=== PATIENT | female | born 1955 | race Hispanic/Latino ===

== ENCOUNTER → 2019-02-15 | Outpatient (CLI) | payer OTHER ==
[~2019-02-15] MED LIST: IOPAMIDOL 370 MG/ML 200 ML INFUS..BTL INJ ONE; SODIUM CHLORIDE 0.9% 50ML 50 ML ONE
[2019-02-15 18:31] LABS: BLOOD UREA NITROGEN 19 mg/dL (7-26); BUN/CREATININE RATIO 23 (6-25); CREATININE, SERUM 0.82 mg/dL (0.57-1.11); EST GLOMERULAR FILTRATION RATE > 60 ML/MIN (60-)
--- NOTE | 2019-02-15 19:22 | Diagnostic Imaging Report ---
CT CHEST WITH CONTRAST HISTORY: SOB; CP COMPARISON: None available. TECHNIQUE: CT scan of the chest WITH intravenous contrast, using PE protocol. The chest was scanned utilizing a multidetector helical scanner from the lung apex through the level of the adrenal glands. Thin section reconstructions were obtained with special concentration on the pulmonary arteries. IV CONTRAST: 100 cc of Isovue-370. PROTOCOL: PE RADIATION DOSE: Total DLP: 500.61 mGy*cm Dose modulation, iterative reconstruction, and/or weight based adjustment of the mA/kV was utilized to reduce the radiation dose to as low as reasonably achievable. COMPLICATIONS: None DISCUSSION: Lungs: Low lung volumes result in bibasilar vascular crowding, accentuation of the pulmonary interstitial markings, central pulmonary vasculature, and the cardiac silhouette. Allowing for these limitations, the findings are as follows: Indeterminate 5 mm nodule within the right middle lobe (axial image 62). No consolidation. A 7 mm thin-walled cyst within the superior aspect of the left lower lobe. Vessels: No filling defects are identified within the pulmonary arteries to the segmental levels. Airways: Mild diffuse thickening of the bronchial barriga. Pleura: No pleural effusion or pneumothorax. Heart and mediastinum: Unremarkable Abdomen: Limited evaluation of the upper abdomen. Lymph nodes: No pathologically enlarged lymph node. Bones: No acute bone abnormality. Soft tissues: Unremarkable IMPRESSION: 1. No pulmonary embolus. 2. An incidental indeterminate 5 mm right middle lobe nodule. If the patient is at increased risk of lung cancer such as a significant smoking history or known malignancy, recommend a follow-up surveillance CT of the chest without contrast in one year to assess for stability. Signed by: Dr. Yuan Grossman D.O., M.M.M. on 02/15/2019 7:19 PM
== END ==
LOC: CT 17:14
PROVIDERS: ATTEND Internal Medicine Cardiovascular Disease
DX: R06.02 Shortness of breath (principal); R07.9 Chest pain, unspecified; R91.1 Solitary pulmonary nodule
CPT/HCPCS: 36415; 71260; 82565; 84520; Q9967

== ENCOUNTER → 2019-08-12 | Outpatient (CLI) | payer OTHER ==
--- NOTE | 2019-08-12 17:14 | Diagnostic Imaging Report ---
CT of the chest, without contrast, 08/12/2019. History: Lung nodules. Comparison: 02/15/2019. Technique: Multidetector CT scanning of the chest was performed from the level of the thoracic inlet to the upper abdomen without IV or oral contrast. Dose reduction: The examination was performed according to departmental dose-optimization program which includes automated exposure control, adjustment of the mA and/or kV according to patient size and/or use of iterative reconstruction technique. Findings: The visualized portions of the thyroid gland are within normal limits. There is no axillary, mediastinal, or hilar lymphadenopathy. The heart is within normal limits of size. There is no pericardial effusion. The thoracic aorta is of normal course and caliber. The trachea and central airways are clear. A 5 mm pulmonary nodule is identified in the right upper lobe on series 3 image 69. This is unchanged from prior examination dated 02/15/2019. No new pulmonary nodules are identified. There is no consolidation, pleural effusion, or pneumothorax. There are no acute osseous abnormalities. Limited evaluation of the upper abdomen demonstrates no focal hepatic lesions in the visualized portions of the liver. The spleen is within normal limits. The bilateral adrenal glands are unremarkable. IMPRESSION: Unchanged 5 mm right middle lobe pulmonary nodule. No new pulmonary nodules. Signed by: Landon Ross MD on 08/12/2019 5:11 PM
== END ==
LOC: CT 13:39
PROVIDERS: ATTEND Internal Medicine Pulmonary Disease
DX: R91.1 Solitary pulmonary nodule (principal)
CPT/HCPCS: 71250

== ENCOUNTER → 2021-02-23 | Outpatient (CLI) | payer BC | LOC: SLEEP 18:52 | PROVIDERS: ATTEND Internal Medicine Critical Care Medicine | DX: G47.33 Obstructive sleep apnea (adult) (pediatric) (principal); Z20.822 Contact with and (suspected) exposure to COVID-19 | CPT/HCPCS: 95806; U0002 ==

== ENCOUNTER → 2022-08-03 | Outpatient (CLI) | payer MEDICARE | LOC: CT 15:51 | PROVIDERS: ATTEND Internal Medicine Pulmonary Disease | DX: R91.1 Solitary pulmonary nodule (principal) | CPT/HCPCS: 71250 ==

== ENCOUNTER → 2022-12-16 | Outpatient (CLI) | payer MEDICARE | LOC: MRI 12:46 | PROVIDERS: ATTEND Nurse Practitioner | DX: R20.0 Anesthesia of skin (principal); R53.1 Weakness | CPT/HCPCS: 70551 ==

== ENCOUNTER 2022-12-24 10:11 | Emergency (ER) | payer MEDICARE ==
[~2022-12-24] VITALS: Ht 154.9 cm; Wt 67.1 kg
[2022-12-24 10:51] LABS: BASOPHILS # (AUTO) 0.1 (0.0-0.1); BASOPHILS % 0.5 % (0.0-1.0); EOSINOPHILS # (AUTO) 0.2 (0.0-0.4); EOSINOPHILS % 1.6 % (0.0-6.0); HEMATOCRIT 40.3 % (34.2-44.1); HEMOGLOBIN 13.2 g/dL (12.0-16.0); LYMPHOCYTES # (AUTO) 1.6 (1.0-3.2); LYMPHOCYTES % 14.9 % (18.0-39.1); MEAN CORPUSCULAR HEMOGLOBIN 29.3 pg (28-32); MEAN CORPUSCULAR HGB CONC 32.8 g/dL (31-35); MEAN CORPUSCULAR VOLUME 89.6 fL (81-99); MONOCYTES # (AUTO) 0.7 (0.2-0.8); MONOCYTES % 6.3 % (4.4-11.3); NEUTROPHILS # (AUTO) 8.4 (2.1-6.9); NEUTROPHILS % 76.4 % (38.7-80.0); PLATELET COUNT 236 x10e3/uL (140-360); RED CELL DISTRIBUTION WIDTH 13.3 % (11.7-14.4)
[2022-12-24 11:05] LABS: ALANINE AMINOTRANSFERASE 17 IU/L (0-55); ALBUMIN 4.1 g/dL (3.5-5.0); ALKALINE PHOSPHATASE 69 IU/L (40-150); ANION GAP 15.8 mmol/L (8-16); BLOOD UREA NITROGEN 17 mg/dL (7-26); BUN/CREATININE RATIO 23 (6-25); CALCIUM 9.6 mg/dL (8.4-10.2); CARBON DIOXIDE 24 mmol/L (22-29); CHLORIDE 104 mmol/L (98-107); CREATININE, SERUM 0.75 mg/dL (0.57-1.11); GLUCOSE 105 mg/dL (74-118); POTASSIUM 3.8 mmol/L (3.5-5.1); SODIUM 140 mmol/L (136-145)
[2022-12-24 11:08] LABS: CLARITY,URINE SL CLOUDY (CLEAR); COLOR,URINE YELLOW (YELLOW); KETONES,URINE NEGATIVE (NEGATIVE); LEUKOCYTE ESTERASE ,URINE TRACE (NEGATIVE); NITRITE,URINE NEGATIVE (NEGATIVE); PROTEIN,URINE DIPSTICK NEGATIVE (NEGATIVE); URINE UROBILINOGEN 0.2 mg/dL (0.2 - 1)
[2022-12-24 11:09] LABS: BACTERIA,URINE MODERATE /HPF; EPITHELIAL CELLS,URINE FEW /LPF; RBC,URINE 0-5 /HPF (0-5)
[2022-12-24] MEDS ORDERED: SODIUM CHLORIDE 0.9% 500ML 500 ML IV ONE (11:15)
[2022-12-24 11:27] LABS: CREATINE KINASE 93 IU/L (29-168)
[2022-12-24] MEDS ORDERED: TRAMADOL HCL 50 MG TAB PO ONE (11:30)
[2022-12-24] MEDS ORDERED: CEFUROXIME250 MG PO (12:31)
[2022-12-24 12:56] VITALS: BP 106/69
== END 2022-12-24 13:01 | disposition home or self-care (01) ==
LOC: ER 10:14
DX: R52 Pain, unspecified (principal); N39.0 Urinary tract infection, site not specified; I10 Essential (primary) hypertension; E11.9 Type 2 diabetes mellitus without complications; E78.5 Hyperlipidemia, unspecified; Z20.822 Contact with and (suspected) exposure to COVID-19
CPT/HCPCS: 36415; 71045; 80053; 81001; 82550; 82553; 83735; 84484; 85025; 87086; 93005; 99284; J7040; U0002

== ENCOUNTER → 2024-04-23 | Outpatient (REF) | payer MEDICARE ==
[~2024-04-23] MED LIST changes: +CEFUROXIME250 MG PO; -IOPAMIDOL 370 MG/ML 200 ML INFUS..BTL INJ ONE; +REGADENOSON 0.4 MG/5 ML SYR IV ONE; -SODIUM CHLORIDE 0.9% 50ML 50 ML ONE
== END ==
LOC: NM 09:43
PROVIDERS: ATTEND Internal Medicine Cardiovascular Disease
DX: I20.89 Other forms of angina pectoris (principal)
CPT/HCPCS: 78452; 93017; A9502; J2785

== ENCOUNTER → 2025-03-20 | Outpatient (REF) | payer MEDICARE ==
[~2025-03-20] MED LIST changes: +IOPAMIDOL 370 MG/ML 100 ML INFUS..BTL INJ ONE; -REGADENOSON 0.4 MG/5 ML SYR IV ONE
[2025-03-20 15:00] LABS: EST GLOMERULAR FILTRATION RATE 72.0 ML/MIN (>=60)
== END ==
LOC: CT 14:09
PROVIDERS: ATTEND Nurse Practitioner Family
DX: R10.9 Unspecified abdominal pain (principal)
CPT/HCPCS: 36415; 74177; 82565; 84520; Q9967